=== PATIENT | female | born 1940 | race Caucasian/White ===

== ENCOUNTER 2016-12-16 00:29 | Inpatient (IN) | payer OTHER ==
[2016-12-16] MEDS ORDERED: NS 0.9% 1000 ML* 1,000 ML IV ONE (01:23)
[2016-12-16 02:02] LABS: Hematocrit 36 % (35-47); Hemoglobin 11.3 g/dl (12.0-16.0); Mean Corpuscular HGB Conc 32 g/dl (31-36); Mean Corpuscular Hemoglobin 30 pg (27-31); Mean Corpuscular Volume 94 fL (80-97); Mean Platelet Volume 8 um3 (7.4-10.4); Red Blood Count 3.79 10^6/ul (4.0-5.4); Red Cell Distribution Width 16 % (10.5-15); White Blood Count 12.3 10^3/ul (3.5-10.8)
[2016-12-16 02:09] LABS: Urine Bacteria Absent (Absent); Urine Bilirubin Negative (Negative); Urine Glucose Negative (Negative); Urine Nitrite Negative (Negative)
[2016-12-16 02:13] LABS: Troponin I 0.01 ng/mL (<0.04)
[2016-12-16 02:16] LABS: ALT 16 U/L (7-52); AST 15 U/L (13-39); Albumin 2.8 g/dL (3.2-5.2); Alkaline Phosphatase 52 U/L (34-104); Anion Gap 6 mmol/L (2-11); BUN/Creatinine Ratio 20.7 (8-20); Blood Urea Nitrogen 24 mg/dL (6-24); CO2 Carbon Dioxide 27 mmol/L (22-32); Calcium 8.7 mg/dL (8.6-10.3); Chloride 103 mmol/L (101-111); EGFR African American 58.4 (>60); EGFR Non-African American 45.4 (>60); Glucose 93 mg/dL (70-100); Lipase < 10 U/L (11.0-82.0); Potassium 3.1 mmol/L (3.5-5.0); Sodium 136 mmol/L (133-145); Total Protein 4.8 g/dL (6.4-8.9)
[2016-12-16] MEDS ORDERED: Iodixanol* (CONTRAST) 320 MG/ML 100 ML SDV IV ONE (02:51)
[2016-12-16] MEDS ORDERED: Piperac/Tazob 3.375 gm in NS* 3.375 GM/100 ML BAG IVPB ONE (03:05)
[2016-12-16] MEDS ORDERED: Ondansetron INJ* 2 MG/ML VIAL IV ONE (03:26)
[2016-12-16] MEDS ORDERED: Morphine INJ* 2 MG/ML 1 ML CARPUJECT IV ONE (03:26)
--- NOTE | 2016-12-16 03:30 | ED ---
Juan C Leiva Aidan, scribed for Basil Parrish on 12/16/16 at 0126 . Abdominal Pain/Female - HPI Summary HPI Summary: 75 y/o female presents to the ED via transfer from [facility] with a complaint of acute, constant, moderate (6/10) LLQ abdominal pain and acute, [id number] episodes of leg weakness. This morning, she was unable to get out of her bed as a result of her leg weakness and fell on two separate occasions with no reported LOC. At [place], she was diagnosed with diverticulitis. Hx of chronic back pain and neuropathy. - History of Current Complaint Chief Complaint: EDAbdPain Stated Complaint: XFER FROM [facility] Time Seen by Provider: 12/16/16 01:00 Hx Obtained From: Patient ?: No Onset/Duration: Sudden Onset, Lasting Hours, Still Present Timing: Constant - abdominal pain Severity Initially: Moderate Severity Currently: Moderate Pain Intensity: 6 Pain Scale Used: 0-10 Numeric Location: Discrete At: LLQ Radiates: No Character: Other: - not described Aggravating Factor(s): Other: - unknown Alleviating Factor(s): Other: - unknown Associated Signs and Symptoms: Positive: Other: - leg weakness Allergies/Adverse Reactions: Allergies Allergy/AdvReac Type Severity Reaction Status Date / Time Ibuprofen Allergy Anaphylatic Verified 12/16/16 00:51 Shock Home Medications: Home Medications Cyclosporine 0.05% OPHTH (NF) [Restasis 0.05% OPHTH] 1 drop BOTH EYES BID [History Confirmed 12/16/16] Furosemide TAB* [Lasix TAB*] 20 mg PO DAILY 12/16/16 [History Confirmed 12/16/16 ] Hydrocodone-Acetaminophen [Vicodin 5-300 mg] 1 tab PO Q6HR PRN 12/16/16 [ History Confirmed 12/16/16] Potassium Chlor TAB* [Klor Con ER TAB*] 20 meq PO BID 12/16/16 [History Confirmed 12/16/16] PMH/Surg Hx/FS Hx/Imm Hx Infectious Disease History: No Infectious Disease History: Denies: Traveled Outside the [place] in Last 30 Days - Social History Occupation: Retired Lives: With Family - Alcohol Use: Rare Hx Substance Use: No Substance Use Type: Reports: None Smoking Status (MU): Never Smoked Tobacco Review of Systems Constitutional: Negative Eyes: Negative ENT: Negative Cardiovascular: Negative Respiratory: Negative Positive: Abdominal Pain. Negative: Vomiting, Diarrhea, Nausea Genitourinary: Negative Musculoskeletal: Other - leg weakness Skin: Negative Neurological: Negative Psychological: Normal All Other Systems Reviewed And Are Negative: Yes Physical Exam Triage Information Reviewed: Yes Vital Signs On Initial Exam: Initial Vitals Temp Pulse Resp BP Pulse Ox 99.9 F 84 16 104/70 94 12/16/16 00:40 12/16/16 00:40 12/16/16 00:40 12/16/16 00:40 12/16/16 00:40 Vital Signs Reviewed: Yes Appearance: Positive: Well-Appearing, No Pain Distress Skin: Positive: Warm, Skin Color Reflects Adequate Perfusion, Dry Head/Face: Positive: Normal Head/Face Inspection Eyes: Positive: EOMI, SEGUNDO ENT: Positive: Normal ENT inspection Neck: Positive: Supple, Nontender Respiratory/Lung Sounds: Positive: Clear to Auscultation, Breath Sounds Present Cardiovascular: Positive: RRR, Pulses are Symmetrical in both Upper and Lower Extremities Abdomen Description: Positive: Soft. Negative: Nontender - LLQ tenderness Bowel Sounds: Positive: Present Musculoskeletal: Positive: Strength/ROM Intact Neurological: Positive: Sensory/Motor Intact, Alert, Oriented to Person Place, Time Psychiatric: Positive: Affect/Mood Appropriate AVPU Assessment: Alert Diagnostics - Vital Signs Vital Signs Temp Pulse Resp BP Pulse Ox 12/16/16 00:52 82 16 95 12/16/16 00:51 99/63 12/16/16 00:40 99.9 F 84 16 104/70 94 - Laboratory Result Diagrams: 12/16/16 01:40 12/16/16 01:40 Lab Statement: Any lab studies that have been ordered have been reviewed, and results considered in the medical decision making process. Abdominal Pain Fem Course/Dx - Course Course Of Treatment: This is a 75 y/o female who presents with LLQ abdominal pain and bilateral leg weakness. - Diagnoses Provider Diagnoses: Diverticulitis Discharge - Discharge Plan Condition: Stable Disposition: ADMITTED TO [facility] Patient Education Materials: Diverticulitis (ED) The documentation as recorded by the Juan C nichols Aidan accurately reflects the service I personally performed and the decisions made by Shivani roa Emmanuel.
[2016-12-16] MEDS ORDERED: PROCHLORPERAZINE INJ 5 MG/ML 2 ML VIAL IV PRN (06:21)
[2016-12-16] MEDS ORDERED: LORazepam INJ* 2 MG/ML 1 ML VIAL IV PRN ×2 (06:21→06:53)
[2016-12-16] MEDS ORDERED: Acetaminophen SUPP* 650 MG SUPP PR PRN (06:21)
[2016-12-16] MEDS ORDERED: Ondansetron INJ* 2 MG/ML VIAL IV PRN (06:21)
--- NOTE | 2016-12-16 06:54 | HP ---
H&P (Free Text) History and Physical: PCP: Kimberly Navarro MD Date/Time of Evaluation: 12/16/2016 0500 CC: abdominal pain HPI: Mrs Purvis is a 75YO female reporting decreased appetite and "queasiness" starting Saturday which she thought was a "stomach bug" as her had similar symptoms plus diarrhea. However, hers continued to worsen becoming more painful and associated with increased sweats, but no subjective F/C, emesis, or other issues. She presented to [place] ED where CT abd/pel revealed severe diverticulitis w/ microperforation & ? abscess formation and transfer arranged after [place] provided consulted with Carole Maxwell MD surgery. PMedHx HTN HLD peripheral neuropathy, BLE GERD anxiety OA gout Allergies Ibuprofen Allergy (Verified 12/16/16 00:51) Anaphylatic Shock Ambulatory Orders Allopurinol TAB* [Zyloprim TAB*] 100 mg PO BID 09/11/13 Atorvastatin Calcium 20 mg PO BEDTIME 09/11/13 Citalopram TAB* [Celexa TAB*] 10 mg PO DAILY 09/11/13 Gabapentin* [Neurontin*] 300 mg PO TID 09/11/13 Losartan Potassium & Hydrochlo [Hyzaar] 1 tab PO DAILY 09/11/13 Omeprazole CAP* [Prilosec CAP*] 20 mg PO DAILY 09/11/13 Cyclosporine 0.05% OPHTH (NF) [Restasis 0.05% OPHTH] 1 drop BOTH EYES BID Furosemide TAB* [Lasix TAB*] 20 mg PO DAILY 12/16/16 Hydrocodone-Acetaminophen [Vicodin 5-300 mg] 1 tab PO Q6HR PRN 12/16/16 Potassium Chlor TAB* [Klor Con ER TAB*] 20 meq PO BID 12/16/16 PSurgHx tonsillectomy L TKA SocHx: no tobacco, alcohol, or recreational drugs; lives with her ; Master's degree in education; full code status FamHx: reviewed, non-contributory to presentation; strongly positive for CAD ROS: as above, otherwise reviewed and all were negative Constitutional: NAD, normally developed, overweight white female vitals: Vital Signs Temp 37.7 C 12/16/16 00:40 Pulse 80 12/16/16 05:25 Resp 17 12/16/16 05:25 BP 102/60 12/16/16 05:25 Pulse Ox 95 12/16/16 05:25 Intake & Output 12/15/16 12/15/16 12/16/16 11:59 23:59 11:59 Intake Total 100 Balance 100 Weight 160 lb Intake: IV Fluids 100 HEENM: atraumatic; sclera/conjunctiva: non-icteric/clear; hearing: markedly decreased, B hearing aides; oropharynx: clear, mucosa moist Neck: soft tissue: non-tender; thyroid: normal Pulmonary: clear to auscultation bilaterally, good aeration, no accessory muscle use CV: RR/RR, normal S1S2, no carotid bruit, no jugular venous distention, 2+ B DP/ PT, no edema Abdominal: soft, non-distended, diffusely tender worst in LLQ with voluntary guarding but no rebound/rigidity, hypoactive bowel sounds, no hepatosplenomegaly or masses, no costovertebral angle tenderness Musculoskeletal: general: grossly intact; gait: stable Integumental: normal appearance and texture Psychiatric orientation: AA&O to PPS affect: calm mood: pleasant eye contact: good content: reliable responses: timely insight: good Testing: Lab Results 12/16/16 12/16/16 12/16/16 Range/Units 01:40 01:40 01:40 WBC 12.3 H (3.5-10.8) 10^3/ul RBC 3.79 L (4.0-5.4) 10^6/ul Hgb 11.3 L (12.0-16.0) g/dl Hct 36 (35-47) % MCV 94 (80-97) fL MCH 30 (27-31) pg MCHC 32 (31-36) g/dl RDW 16 H (10.5-15) % Plt Count 161 (150-450) 10^3/ul MPV 8 (7.4-10.4) um3 Neut % (Auto) 85.3 H (38-83) % Lymph % (Auto) 8.9 L (25-47) % [place] % (Auto) 4.4 (1-9) % Eos % (Auto) 1.0 (0-6) % Baso % (Auto) 0.4 (0-2) % Absolute Neuts (auto) 10.5 H (1.5-7.7) 10^3/ul Absolute Lymphs (auto) 1.1 (1.0-4.8) 10^3/ul Absolute Monos (auto) 0.5 (0-0.8) 10^3/ul Absolute Eos (auto) 0.1 (0-0.6) 10^3/ul Absolute Basos (auto) 0 (0-0.2) 10^3/ul Absolute Nucleated RBC 0.01 10^3/ul Nucleated RBC % 0.1 APTT 26.2 (26.0-36.3) seconds Sodium (133-145) mmol/L Potassium (3.5-5.0) mmol/L Chloride (101-111) mmol/L Carbon Dioxide (22-32) mmol/L Anion Gap (2-11) mmol/L BUN (6-24) mg/dL Creatinine (0.51-0.95) mg/dL Est GFR ( Amer) (>60) Est GFR (Non-Af Amer) (>60) BUN/Creatinine Ratio (8-20) Glucose (70-100) mg/dL Lactic Acid (0.5-2.0) mmol/L Calcium (8.6-10.3) mg/dL Total Bilirubin (0.2-1.0) mg/dL AST (13-39) U/L ALT (7-52) U/L Alkaline Phosphatase (34-104) U/L Troponin I (<0.04) ng/mL Total Protein (6.4-8.9) g/dL Albumin (3.2-5.2) g/dL Globulin (2-4) g/dL Albumin/Globulin Ratio (1-3) Prealbumin Lipase (11.0-82.0) U/L Urine Color Yellow Urine Appearance Clear Urine pH 5.0 (5-9) Ur Specific [place] 1.008 L (1.010-1.030) Urine Protein Negative (Negative) Urine Ketones Negative (Negative) Urine Blood 2+ H (Negative) Urine Nitrate Negative (Negative) Urine Bilirubin Negative (Negative) Urine Urobilinogen Negative (Negative) Ur Leukocyte Esterase 2+ H (Negative) Urine WBC (Auto) 3+(>20/hpf) H (Absent) Urine RBC (Auto) Trace(0-2/hpf) (Absent) Ur Squamous Epith Cells Present H (Absent) Urine Bacteria Absent (Absent) Urine Glucose Negative (Negative) 12/16/16 12/16/16 Range/Units 01:40 01:40 WBC (3.5-10.8) 10^3/ul RBC (4.0-5.4) 10^6/ul Hgb (12.0-16.0) g/dl Hct (35-47) % MCV (80-97) fL MCH (27-31) pg MCHC (31-36) g/dl RDW (10.5-15) % Plt Count (150-450) 10^3/ul MPV (7.4-10.4) um3 Neut % (Auto) (38-83) % Lymph % (Auto) (25-47) % [place] % (Auto) (1-9) % Eos % (Auto) (0-6) % Baso % (Auto) (0-2) % Absolute Neuts (auto) (1.5-7.7) 10^3/ul Absolute Lymphs (auto) (1.0-4.8) 10^3/ul Absolute Monos (auto) (0-0.8) 10^3/ul Absolute Eos (auto) (0-0.6) 10^3/ul Absolute Basos (auto) (0-0.2) 10^3/ul Absolute Nucleated RBC 10^3/ul Nucleated RBC % APTT (26.0-36.3) seconds Sodium 136 (133-145) mmol/L Potassium 3.1 L (3.5-5.0) mmol/L Chloride 103 (101-111) mmol/L Carbon Dioxide 27 (22-32) mmol/L Anion Gap 6 (2-11) mmol/L BUN 24 (6-24) mg/dL Creatinine 1.16 H (0.51-0.95) mg/dL Est GFR ( Amer) 58.4 (>60) Est GFR (Non-Af Amer) 45.4 (>60) BUN/Creatinine Ratio 20.7 H (8-20) Glucose 93 (70-100) mg/dL Lactic Acid 0.8 (0.5-2.0) mmol/L Calcium 8.7 (8.6-10.3) mg/dL Total Bilirubin 0.80 (0.2-1.0) mg/dL AST 15 (13-39) U/L ALT 16 (7-52) U/L Alkaline Phosphatase 52 (34-104) U/L Troponin I 0.01 (<0.04) ng/mL Total Protein 4.8 L (6.4-8.9) g/dL Albumin 2.8 L (3.2-5.2) g/dL Globulin 2.0 (2-4) g/dL Albumin/Globulin Ratio 1.4 (1-3) Prealbumin Pending Lipase < 10 L (11.0-82.0) U/L Urine Color Urine Appearance Urine pH (5-9) Ur Specific [place] (1.010-1.030) Urine Protein (Negative) Urine Ketones (Negative) Urine Blood (Negative) Urine Nitrate (Negative) Urine Bilirubin (Negative) Urine Urobilinogen (Negative) Ur Leukocyte Esterase (Negative) Urine WBC (Auto) (Absent) Urine RBC (Auto) (Absent) Ur Squamous Epith Cells (Absent) Urine Bacteria (Absent) Urine Glucose (Negative) CT abd/pel W ([facility]), personally reviewed: diverticulitis w/ microperforation & ? evolving abscess Impression: 75F presenting with diverticulitis w/ microperforation & ? evolving abscess DIAGNOSIS & PLAN Primary diverticulitis w/ microperforation & ? evolving abscess : IVFs : NPO : IV piperacillin/tazobactam : blood CX : Carole Maxwell MD surgery consulted by [facility], will evaluate in AM : supplemental oxygen : pain control : supportive care Secondary HTN : hold losartan for now, monitor HLD : hold atorvastatin for now peripheral neuropathy, BLE : continue gabapentin w/ sips H2O GERD : IV pantoprazole anxiety : PRN lorazepam IV : hold citalopram for now gout : continue allopurinol w/ sips H2O Admission Rational: inpatient for management of severe diverticulitis possibly requiring surgery in patient at high risk of decompensation DVTp: SCDs & heparin SQ Code Status: full HCP:
[2016-12-16 07:07] LABS: Prealbumin 18 mg/dL (18-38)
[2016-12-16] MEDS: HYDROmorphone INJ* 1 MG/ML CARPUJECT SYRINGE IV PRN ×3 (07:25→18:11)
[2016-12-16] MEDS: KCL 20 MEQ/100 ML IVPREMIX* 20 MEQ/100 ML BAG IV SCH ×2 (08:43→11:44)
[2016-12-16] MEDS: Piperac/Tazob 3.375 gm in NS* 3.375 GM/100 ML BAG IVPB SCH ×3 (08:43→21:27)
[2016-12-16] MEDS: Cyclosporine 0.05% OPHTH (NF) 0.4 ML VIAL BOTH EYES SCH ×2 (09:11→21:32)
[2016-12-16] MEDS: Gabapentin CAP(*) 300 MG PO SCH ×3 (09:23→21:31)
[2016-12-16] MEDS: Allopurinol TAB* 100 MG PO SCH ×2 (09:24→21:31)
[2016-12-16] MEDS: Pantoprazole IV* 40 MG IV SCH (09:24)
--- NOTE | 2016-12-16 12:11 | PN ---
Subjective Date of Service: 12/16/16 Interval History: Patient seen and examined at bedside. She is pleasant and talkative. She states that she just had pain medicine and reports that the pain is most noticeable on the left and spreads across her low abdomen. She feels "stir crazy" and is waiting for her to come so she can have some distraction from her pain. Patient assisted in obtaining reading materials. She denies CP, SOB, n/v. She states that she "misses food." She reports left leg pain but then reports that she has multiple bone issues and this is not new pain. Family History: Unchanged from Admission Social History: Unchanged from Admission Past Medical History: Unchanged from Admission Objective Active Medications: Acetaminophen (Tylenol Supp*) 650 mg ID Q6H PRN PRN Reason: FEVER/PAIN Allopurinol (Zyloprim Tab*) 100 mg PO BID [facility] Last Admin: 12/16/16 09:24 Dose: 100 mg Cyclosporine (Restasis 0.05% Ophth) 1 drop BOTH EYES BID [facility] PRN Reason: Protocol Last Admin: 12/16/16 09:11 Dose: Not Given Gabapentin (Neurontin Cap(*)) 300 mg PO TID [facility] Last Admin: 12/16/16 09:23 Dose: 300 mg Heparin Sodium (Porcine) (Heparin Vial(*)) 5,000 units SUBCUT Q8HR [facility] Hydromorphone HCl (Dilaudid Iv*) 0.5 mg IV Q2H PRN PRN Reason: PAIN Last Admin: 12/16/16 11:23 Dose: 0.5 mg Lactated Ringer's (Lactated Ringers 1000 Ml Bag*) 1,000 mls @ 125 mls/hr IV PER RATE [facility] Last Admin: 12/16/16 07:15 Dose: 125 mls/hr Piperacillin Sod/Tazobactam Sod (Zosyn 3.375 Gm In Ns Premix*) 3.375 gm in 100 mls @ 200 mls/hr IVPB Q6H [facility] Last Admin: 12/16/16 08:43 Dose: 200 mls/hr Lorazepam (Ativan Inj*) 1 mg IV BEDTIME PRN PRN Reason: SLEEP Lorazepam (Ativan Inj*) 0.5 mg IV Q8H PRN PRN Reason: ANXIETY Ondansetron HCl (Zofran Inj*) 4 mg IV Q6H PRN PRN Reason: NAUSEA Pantoprazole Sodium (Protonix Iv*) 40 mg IV DAILY [facility] Last Admin: 12/16/16 09:24 Dose: 40 mg Prochlorperazine Edisylate (Compazine Inj*) 10 mg IV Q6H PRN PRN Reason: NAUSEA Vital Signs 12/16/16 12/16/16 12/16/16 06:52 07:15 07:25 Temperature 98.1 F 98.1 F Pulse Rate 76 73 Respiratory 18 18 18 Rate Blood Pressure 102/59 121/66 (mmHg) O2 Sat by Pulse 94 Oximetry 12/16/16 12/16/16 12/16/16 07:57 08:00 09:23 Temperature Pulse Rate Respiratory 18 18 18 Rate Blood Pressure (mmHg) O2 Sat by Pulse Oximetry 12/16/16 11:23 Temperature Pulse Rate Respiratory 18 Rate Blood Pressure (mmHg) O2 Sat by Pulse Oximetry Oxygen Devices in Use Now: None Appearance: Female patient, lying in bed, in NAD Eyes: PERRLA Ears/Nose/Mouth/Throat: Clear Oropharnyx, Mucous Membranes Moist Neck: NL Appearance and Movements; NL JVP Respiratory: Symmetrical Chest Expansion and Respiratory Effort, Clear to Auscultation Cardiovascular: NL Sounds; No Murmurs; No JVD, RRR Abdominal: - - BS present, abdomen protuberant, tender in LLQ and across mid/ lower abdomen Extremities: No Edema Skin: No Rash or Ulcers Neurological: Alert and Oriented x 3 Lines/Tubes/Other Access: Clean, Dry and Intact Peripheral IV Result Diagrams: 12/16/16 01:40 12/16/16 01:40 Assess/Plan/Problems-Billing Assessment: Ms. Purvis is a 75 yo female with a PMH of HTN, HLD, BLE peripheral neuropathy , GERD, anxiety, OA, and gout who presented to [place] ED on 12/15/16 with abdominal pain secondary to severe diverticulitis with microperforation and question of abscess formation; the patient was transferred to [facility] for admission and surgical consult on 12/16/16. - Patient Problems (1) Diverticulitis of intestine with perforation and abscess Code(s): K57.80 - DVTRCLI OF INTEST, PART UNSP, W PERF AND ABSCESS W/O BLEED Comment: With microperforation and question of evolving abscess Surgery consult pending Continue IVF, Zosyn, pain management NPO Blood cultures pending (drawn at [place]) (2) HTN (hypertension) Code(s): I10 - ESSENTIAL (PRIMARY) HYPERTENSION Comment: Normotensive. Continue to hold losartan/HCTZ and furosemide. (3) HLD (hyperlipidemia) Code(s): E78.5 - HYPERLIPIDEMIA, UNSPECIFIED Comment: Continue statin when able to take PO. (4) Peripheral neuropathy Code(s): G62.9 - POLYNEUROPATHY, UNSPECIFIED Comment: Continue gabapentin. (5) GERD (gastroesophageal reflux disease) Current Visit: Yes Code(s): K21.9 - GASTRO-ESOPHAGEAL REFLUX DISEASE WITHOUT ESOPHAGITIS Comment: Continue IV pantoprazole. Resume omeprazole when taking PO. (6) Anxiety Code(s): F41.9 - ANXIETY DISORDER, UNSPECIFIED Comment: Continue PRN lorazepam. Resume citalopram when appropriate to take PO. (7) Gout Code(s): M10.9 - GOUT, UNSPECIFIED Comment: Continue allopurinol. (8) DVT prophylaxis Comment: SQ heparin and SCDs Status and Disposition: Inpatient admission. Anticipate >2 days LOS.
[2016-12-16] MEDS ORDERED: Artificial Tears* 15 ML BTL BOTH EYES PRN (12:55)
--- NOTE | 2016-12-16 15:31 | RAD ---
INDICATION: Trauma left lower extremity pain. TECHNIQUE: An AP view of the pelvis was obtained. FINDINGS: There is residual contrast in the colon from a prior CT of the abdomen and pelvis from one day earlier. This limits the study. The bones are normal alignment. No fracture is seen. Incidental note is made of mild bilateral osteoarthritic change in the hips. IMPRESSION: LIMITED STUDY, NO EVIDENCE FOR FRACTURE.
--- NOTE | 2016-12-16 15:33 | RAD ---
INDICATION: Trauma, left lower extremity pain. TECHNIQUE: 2 views of the left femur were obtained. FINDINGS: The bones are normal alignment. No fracture is seen. The patient is status post total left knee replacement surgery. IMPRESSION: NO EVIDENCE FOR FRACTURE.
--- NOTE | 2016-12-16 15:34 | RAD ---
INDICATION: Left lower leg injury. TECHNIQUE: 2 views of the left lower leg were obtained. FINDINGS: The bones are in normal alignment. The patient is status post total left knee replacement surgery. The bones and prostheses are in normal alignment. There is an old healed fracture of the proximal metaphysis of the fibula. No acute fracture is seen. IMPRESSION: NO EVIDENCE FOR ACUTE FRACTURE.
[2016-12-16 18:42] LABS: C Reactive Protein 297.33 mg/L (< 5.00)
--- NOTE | 2016-12-16 19:26 | CONS ---
CONSULTATION REPORT: DATE OF CONSULT: 12/16/16 HISTORY: The patient is a 75-year-old female, who got transferred over from [place] [facility] with signs and symptoms consistent with focally perforated sigmoid diverticulitis. She has been admitted by the medical service and treated with antibiotics and surgical consultation has been requested. By history, she has had known diverticulosis, has had previous endoscopy with Dr. Garner, but has never had an attack of diverticulitis that she is aware of. She started feeling off with some pressure and pain in her stomach and some pressure with urination about 4 or 5 days ago. Her had had a GI bug and she thought she was coming down with the same GI bug, but then yesterday things got worse in terms of intensity of the pain. She has not had a bowel movement in over a day. She has not had any blood with the bowel movement. She has noticed pressure in the bladder when it gets full and has not had a urinary infection. She has not had abdominal surgery in this region at all. PHYSICAL EXAM: She appears fit and energetic. Skin is warm and well-perfused. She does not appear acutely ill. She remains afebrile with good vital signs. Abdomen is obese and soft and tender from the left lower quadrant through the suprapubic region to the right of the midline, most focally in the left suprapubic region. There is maybe a trace of rebound tenderness. No guarding. The upper abdomen is completely benign. There are no palpable masses or hernias. DIAGNOSTIC STUDIES/LAB DATA: Laboratory studies show white blood count elevated at 12,000 with left shift. Her electrolytes are unremarkable. I reviewed her CT scan from [facility], which shows an extraluminal collection with air and a little bit of fluid consistent with a perforated diverticulitis. There are inflammatory changes in that region as well. At this point, it is not clear whether this is an abscess but it certainly may become an abscess. There is no evidence of more widespread peritonitis. IMPRESSION: A 75-year-old female with evidence of sigmoid diverticulitis with focally contained perforation, now starting to feel a little bit better on intravenous Zosyn. I have discussed situation with her and with her and I recommend continued IV antibiotics. At present, she does not need any kind of emergent surgery. She understands that if her recovery stalls or if at any time it takes a turn for the worse, we could conceivably be needing to go to operating room, at which point, we would probably be planning a temporary colostomy. They understand the rationale behind this and all their questions have been answered, so we will proceed with continued antibiotics and we will monitor her closely. CC: Dr. Sarbjit Maxwell; Dr. Kaila Navarro; [facility] * [id number]/[facility] #: [id number] [facility]
[2016-12-17] MEDS: Piperac/Tazob 3.375 gm in NS* 3.375 GM/100 ML BAG IVPB SCH ×4 (03:39→21:02)
[2016-12-17] MEDS: Heparin VIAL(*) 5000 UNITS/ML VIAL (FIVE THOUSAND) SUBCUT SCH ×3 (06:09→21:42)
[2016-12-17 07:27] LABS: Hematocrit 34 % (35-47); Hemoglobin 11.1 g/dl (12.0-16.0); Mean Corpuscular HGB Conc 33 g/dl (31-36); Mean Corpuscular Hemoglobin 31 pg (27-31); Mean Corpuscular Volume 93 fL (80-97); Mean Platelet Volume 8 um3 (7.4-10.4); Red Cell Distribution Width 16 % (10.5-15); White Blood Count 8.4 10^3/ul (3.5-10.8)
[2016-12-17 07:39] LABS: BUN/Creatinine Ratio 18.5 (8-20); C Reactive Protein 233.83 mg/L (< 5.00); Calcium 9.6 mg/dL (8.6-10.3); EGFR African American 88.4 (>60); EGFR Non-African American 68.7 (>60); Potassium 3.8 mmol/L (3.5-5.0)
[2016-12-17] MEDS: Gabapentin CAP(*) 300 MG PO SCH ×3 (07:46→19:47)
[2016-12-17] MEDS: Allopurinol TAB* 100 MG PO SCH ×2 (07:46→19:49)
[2016-12-17] MEDS: Pantoprazole IV* 40 MG IV SCH (07:47)
[2016-12-17] MEDS: Cyclosporine 0.05% OPHTH (NF) 0.4 ML VIAL BOTH EYES SCH (07:48)
--- NOTE | 2016-12-17 08:22 | PN ---
Subjective Date of Service: 12/17/16 Interval History: Patient seen and examined at bedside. She reports that her abdomen feels better today but continues to report radiating left leg pain; this has been ongoing for a few weeks due to a misstep and injury. She reports chronic issues with the leg, as well as neuropathy. She denies fever/chills, CP, SOB, n/v. Patient encouraged to walk around and change positions, which she agrees with. Family History: Unchanged from Admission Social History: Unchanged from Admission Past Medical History: Unchanged from Admission Objective Active Medications: Acetaminophen (Tylenol Supp*) 650 mg AK Q6H PRN PRN Reason: FEVER/PAIN Allopurinol (Zyloprim Tab*) 100 mg PO BID [facility] Last Admin: 12/17/16 07:46 Dose: 100 mg Cyclosporine (Restasis 0.05% Ophth) 1 drop BOTH EYES BID [facility] PRN Reason: Protocol Last Admin: 12/17/16 07:48 Dose: Not Given Gabapentin (Neurontin Cap(*)) 300 mg PO TID [facility] Last Admin: 12/17/16 07:46 Dose: 300 mg Heparin Sodium (Porcine) (Heparin Vial(*)) 5,000 units SUBCUT Q8HR [facility] Last Admin: 12/17/16 06:09 Dose: 5,000 units Hydromorphone HCl (Dilaudid Iv*) 1 mg IV Q3H PRN PRN Reason: PAIN Last Admin: 12/16/16 18:11 Dose: 1 mg Piperacillin Sod/Tazobactam Sod (Zosyn 3.375 Gm In Ns Premix*) 3.375 gm in 100 mls @ 200 mls/hr IVPB Q6H [facility] Last Admin: 12/17/16 07:48 Dose: 200 mls/hr Lactated Ringer's (Lactated Ringers 1000 Ml Bag*) 1,000 mls @ 60 mls/hr IV PER RATE [facility] Lorazepam (Ativan Inj*) 1 mg IV BEDTIME PRN PRN Reason: SLEEP Lorazepam (Ativan Inj*) 0.5 mg IV Q8H PRN PRN Reason: ANXIETY Ondansetron HCl (Zofran Inj*) 4 mg IV Q6H PRN PRN Reason: NAUSEA Pantoprazole Sodium (Protonix Iv*) 40 mg IV DAILY [facility] Last Admin: 12/17/16 07:47 Dose: 40 mg Polyvinyl Alcohol (Polyvinyl Alcohol 1.4% Opth*) 1 drop BOTH EYES Q2H PRN PRN Reason: DRY EYE Last Admin: 12/16/16 16:14 Dose: 1 drop Prochlorperazine Edisylate (Compazine Inj*) 10 mg IV Q6H PRN PRN Reason: NAUSEA Vital Signs 12/16/16 12/16/16 12/16/16 09:23 11:23 12:03 Temperature 98.3 F Pulse Rate 66 Respiratory 18 18 16 Rate Blood Pressure 115/65 (mmHg) O2 Sat by Pulse 96 Oximetry 12/16/16 12/16/16 12/16/16 12:23 15:16 15:30 Temperature 98.6 F Pulse Rate 66 Respiratory 18 18 16 Rate Blood Pressure 115/64 (mmHg) O2 Sat by Pulse 98 Oximetry 12/16/16 12/16/16 12/16/16 17:15 18:11 19:11 Temperature Pulse Rate Respiratory 18 18 18 Rate Blood Pressure (mmHg) O2 Sat by Pulse Oximetry 12/16/16 12/16/16 12/16/16 19:29 19:50 21:31 Temperature 98.0 F Pulse Rate 83 Respiratory 18 18 20 Rate Blood Pressure 129/82 (mmHg) O2 Sat by Pulse 98 Oximetry 12/16/16 12/17/16 12/17/16 23:31 00:16 03:24 Temperature 98.3 F 98.7 F Pulse Rate 76 60 Respiratory 16 16 16 Rate Blood Pressure 135/78 135/78 (mmHg) O2 Sat by Pulse 93 96 Oximetry 12/17/16 12/17/16 07:27 07:46 Temperature 97.9 F Pulse Rate 59 Respiratory 16 16 Rate Blood Pressure 148/78 (mmHg) O2 Sat by Pulse 93 Oximetry Oxygen Devices in Use Now: None Appearance: Female patient, lying in bed, in NAD Eyes: PERRLA Ears/Nose/Mouth/Throat: Clear Oropharnyx, Mucous Membranes Moist Neck: NL Appearance and Movements; NL JVP Respiratory: Symmetrical Chest Expansion and Respiratory Effort, Clear to Auscultation Cardiovascular: NL Sounds; No Murmurs; No JVD, RRR Abdominal: - - abdomen soft, tender to LLQ and tender across lower abdomen, BS present Extremities: No Edema Skin: No Rash or Ulcers Neurological: Alert and Oriented x 3 Lines/Tubes/Other Access: Clean, Dry and Intact Peripheral IV Result Diagrams: 12/17/16 06:41 12/17/16 06:41 Assess/Plan/Problems-Billing Assessment: Ms. Purvis is a 75 yo female with a PMH of HTN, HLD, BLE peripheral neuropathy , GERD, anxiety, OA, and gout who presented to [place] ED on 12/15/16 with abdominal pain secondary to severe diverticulitis with microperforation and question of abscess formation; the patient was transferred to [facility] ED for admission and surgical consult on 12/16/16. - Patient Problems (1) Diverticulitis of intestine with perforation and abscess Code(s): K57.80 - DVTRCLI OF INTEST, PART UNSP, W PERF AND ABSCESS W/O BLEED Comment: Patient reports improvement in symptoms this AM Afebrile, WBC/CRP show improvement today With microperforation and question of evolving abscess Appreciate surgery input Continue IVF, Zosyn, pain management Clear liquids Blood cultures pending (drawn at [place]) (2) HTN (hypertension) Code(s): I10 - ESSENTIAL (PRIMARY) HYPERTENSION Comment: Mostly normotensive but BP starting to trend up. Resume losartan Continue to hold HCTZ and furosemide. (3) HLD (hyperlipidemia) Code(s): E78.5 - HYPERLIPIDEMIA, UNSPECIFIED Comment: Continue statin. (4) Peripheral neuropathy Code(s): G62.9 - POLYNEUROPATHY, UNSPECIFIED Comment: Continue gabapentin. (5) GERD (gastroesophageal reflux disease) Current Visit: Yes Code(s): K21.9 - GASTRO-ESOPHAGEAL REFLUX DISEASE WITHOUT ESOPHAGITIS Comment: Continue PPI. (6) Anxiety Code(s): F41.9 - ANXIETY DISORDER, UNSPECIFIED Comment: Continue citalopram. (7) Gout Code(s): M10.9 - GOUT, UNSPECIFIED Comment: Continue allopurinol. (8) DVT prophylaxis Comment: SQ heparin and SCDs Status and Disposition: Inpatient admission. Anticipate >2 days LOS.
[2016-12-17] MEDS ORDERED: Omeprazole CAP* 20 MG PO SCH (09:00)
[2016-12-17] MEDS: HYDROmorphone INJ* 1 MG/ML CARPUJECT SYRINGE IV PRN ×2 (11:39→21:47)
[2016-12-17] MEDS: Losartan TAB* 25 MG PO SCH (11:40)
[2016-12-17] MEDS: Citalopram TAB* 10 MG PO SCH (11:41)
[2016-12-17] MEDS: Potassium Chlor TAB* 20 MEQ TAB.ER PO SCH ×2 (11:41→19:49)
[2016-12-17] MEDS: Atorvastatin* 20 MG TAB PO SCH (19:47)
[2016-12-17] MEDS: CYCLOSPORINE 0.05% BOTH EYES SCH (19:50)
[2016-12-18] MEDS: Piperac/Tazob 3.375 gm in NS* 3.375 GM/100 ML BAG IVPB SCH ×4 (03:18→21:24)
[2016-12-18] MEDS: Heparin VIAL(*) 5000 UNITS/ML VIAL (FIVE THOUSAND) SUBCUT SCH ×3 (05:36→21:30)
[2016-12-18 07:12] LABS: Hematocrit 33 % (35-47); Hemoglobin 10.7 g/dl (12.0-16.0); Mean Corpuscular HGB Conc 33 g/dl (31-36); Mean Corpuscular Hemoglobin 31 pg (27-31); Mean Corpuscular Volume 94 fL (80-97); Mean Platelet Volume 8 um3 (7.4-10.4); Red Cell Distribution Width 16 % (10.5-15)
[2016-12-18 07:14] LABS: Add Diff/Slide Review? Slide Review Added; Comments Flag Yes
--- NOTE | 2016-12-18 08:50 | PN ---
Subjective Date of Service: 12/18/16 Interval History: Patient seen and examined at bedside. She reports having 2-3 BM overnight and this AM and that they are becoming more firm. She feels as if she has more gas this morning and reports some "upset stomach." She denies CP, SOB. Abd pain is decreasing in severity. Patient advised to ambulate in order to facilitate flatus. She agrees with this. She reports chronic left leg pain but noted that it was better when she moved around and did not bother her as much overnight. Family History: Unchanged from Admission Social History: Unchanged from Admission Past Medical History: Unchanged from Admission Objective Active Medications: Acetaminophen (Tylenol Supp*) 650 mg DC Q6H PRN PRN Reason: FEVER/PAIN Allopurinol (Zyloprim Tab*) 100 mg PO BID [facility] Last Admin: 12/17/16 19:49 Dose: 100 mg Atorvastatin Calcium (Lipitor*) 20 mg PO BEDTIME [facility] Last Admin: 12/17/16 19:47 Dose: 20 mg Citalopram Hydrobromide (Celexa Tab*) 10 mg PO DAILY [facility] Last Admin: 12/17/16 11:41 Dose: 10 mg Cyclosporine (Restasis 0.05% Oph) 1 drop BOTH EYES BID [facility] PRN Reason: Protocol Last Admin: 12/17/16 19:50 Dose: 1 drop Gabapentin (Neurontin Cap(*)) 300 mg PO TID [facility] Last Admin: 12/17/16 19:47 Dose: 300 mg Heparin Sodium (Porcine) (Heparin Vial(*)) 5,000 units SUBCUT Q8HR [facility] Last Admin: 12/18/16 05:36 Dose: 5,000 units Hydromorphone HCl (Dilaudid Iv*) 1 mg IV Q3H PRN PRN Reason: PAIN Last Admin: 12/17/16 21:47 Dose: 1 mg Piperacillin Sod/Tazobactam Sod (Zosyn 3.375 Gm In Ns Premix*) 3.375 gm in 100 mls @ 200 mls/hr IVPB Q6H [facility] Last Admin: 12/18/16 03:18 Dose: 200 mls/hr Lactated Ringer's (Lactated Ringers 1000 Ml Bag*) 1,000 mls @ 0 mls/hr IV PER RATE [facility] PRN Reason: KVO Lorazepam (Ativan Inj*) 1 mg IV BEDTIME PRN PRN Reason: SLEEP Lorazepam (Ativan Inj*) 0.5 mg IV Q8H PRN PRN Reason: ANXIETY Losartan Potassium (Cozaar Tab*) 100 mg PO DAILY [facility] Last Admin: 12/17/16 11:40 Dose: 100 mg Omeprazole (Prilosec Cap*) 20 mg PO 0900 [facility] Ondansetron HCl (Zofran Inj*) 4 mg IV Q6H PRN PRN Reason: NAUSEA Polyvinyl Alcohol (Polyvinyl Alcohol 1.4% Opth*) 1 drop BOTH EYES Q2H PRN PRN Reason: DRY EYE Last Admin: 12/16/16 16:14 Dose: 1 drop Potassium Chloride (Klor Con Er Tab*) 20 meq PO BID [facility] Last Admin: 12/17/16 19:49 Dose: 20 meq Prochlorperazine Edisylate (Compazine Inj*) 10 mg IV Q6H PRN PRN Reason: NAUSEA Vital Signs 12/17/16 12/17/16 12/17/16 11:32 11:39 12:39 Temperature 97.8 F Pulse Rate 59 Respiratory 17 16 16 Rate Blood Pressure 165/80 (mmHg) O2 Sat by Pulse 98 Oximetry 12/17/16 12/17/16 12/17/16 13:38 15:12 15:38 Temperature 97.8 F Pulse Rate 57 Respiratory 16 16 16 Rate Blood Pressure 141/58 (mmHg) O2 Sat by Pulse 99 Oximetry 12/17/16 12/17/16 12/17/16 19:13 19:37 19:47 Temperature 98.1 F Pulse Rate 65 Respiratory 16 16 16 Rate Blood Pressure 127/72 (mmHg) O2 Sat by Pulse 94 Oximetry 12/17/16 12/17/16 12/17/16 21:47 22:47 23:54 Temperature 97.5 F Pulse Rate 57 Respiratory 16 16 16 Rate Blood Pressure 116/67 (mmHg) O2 Sat by Pulse 97 Oximetry 12/18/16 12/18/16 03:21 07:50 Temperature 97.5 F 97.8 F Pulse Rate 57 55 Respiratory 16 16 Rate Blood Pressure 133/77 153/86 (mmHg) O2 Sat by Pulse 97 99 Oximetry Oxygen Devices in Use Now: None Appearance: Female patient, lying in bed, in NAD Eyes: PERRLA Ears/Nose/Mouth/Throat: Mucous Membranes Moist Respiratory: Symmetrical Chest Expansion and Respiratory Effort, Clear to Auscultation Cardiovascular: NL Sounds; No Murmurs; No JVD, RRR Abdominal: - - BS present, abd soft, tender in LLQ and across suprapubic region Extremities: No Clubbing, Cyanosis Skin: No Rash or Ulcers Neurological: Alert and Oriented x 3 Lines/Tubes/Other Access: Clean, Dry and Intact Peripheral IV Nutrition: Taking PO's Result Diagrams: 12/18/16 06:32 12/17/16 06:41 Assess/Plan/Problems-Billing Assessment: Ms. Purvis is a 75 yo female with a PMH of HTN, HLD, BLE peripheral neuropathy , GERD, anxiety, OA, and gout who presented to [place] ED on 12/15/16 with abdominal pain secondary to severe diverticulitis with microperforation and question of abscess formation; the patient was transferred to [facility] for admission and surgical consult on 12/16/16. - Patient Problems (1) Diverticulitis of intestine with perforation and abscess Code(s): K57.80 - DVTRCLI OF INTEST, PART UNSP, W PERF AND ABSCESS W/O BLEED Comment: Patient reports gas and nausea this morning but feels she is improving Afebrile, WBC improved With microperforation and question of evolving abscess Appreciate surgery input Continue IVF, Zosyn, pain management Clear liquids Blood cultures pending (drawn at [place]) (2) HTN (hypertension) Code(s): I10 - ESSENTIAL (PRIMARY) HYPERTENSION Comment: Mostly normotensive. Continue losartan. Continue to hold HCTZ and furosemide. (3) HLD (hyperlipidemia) Code(s): E78.5 - HYPERLIPIDEMIA, UNSPECIFIED Comment: Continue statin. (4) Peripheral neuropathy Code(s): G62.9 - POLYNEUROPATHY, UNSPECIFIED Comment: Continue gabapentin. (5) GERD (gastroesophageal reflux disease) Current Visit: Yes Code(s): K21.9 - GASTRO-ESOPHAGEAL REFLUX DISEASE WITHOUT ESOPHAGITIS Comment: Continue PPI. (6) Anxiety Code(s): F41.9 - ANXIETY DISORDER, UNSPECIFIED Comment: Continue citalopram. (7) Gout Code(s): M10.9 - GOUT, UNSPECIFIED Comment: Continue allopurinol. (8) Chronic pain of left lower extremity Code(s): M79.605 - PAIN IN LEFT LEG; G89.29 - OTHER CHRONIC PAIN Comment: Encourage ambulation, PT consult. Continue prn analgesia. XR negative for acute fracture following misstep/fall several days ago Continue outpatient follow-up with pain clinic. (9) DVT prophylaxis Comment: SQ heparin and SCDs Status and Disposition: Inpatient admission. Anticipate >2 days LOS.
[2016-12-18] MEDS: Citalopram TAB* 10 MG PO SCH (09:44)
[2016-12-18] MEDS: Allopurinol TAB* 100 MG PO SCH ×2 (09:44→19:48)
[2016-12-18] MEDS: Gabapentin CAP(*) 300 MG PO SCH ×3 (09:44→19:48)
[2016-12-18] MEDS: Potassium Chlor TAB* 20 MEQ TAB.ER PO SCH ×2 (09:48→19:48)
[2016-12-18] MEDS: Losartan TAB* 25 MG PO SCH (09:48)
[2016-12-18] MEDS: Omeprazole CAP* 20 MG PO SCH (09:49)
[2016-12-18] MEDS: CYCLOSPORINE 0.05% BOTH EYES SCH ×2 (09:50→19:49)
[2016-12-18] MEDS: Atorvastatin* 20 MG TAB PO SCH (19:48)
[2016-12-19] MEDS: Piperac/Tazob 3.375 gm in NS* 3.375 GM/100 ML BAG IVPB SCH ×2 (02:56→09:05)
[2016-12-19] MEDS ORDERED: Acetaminophen TAB* 325 MG PO PRN (03:43)
[2016-12-19] MEDS ORDERED: Acetaminophen TAB* 325 MG ONE (03:50)
[2016-12-19] MEDS: Heparin VIAL(*) 5000 UNITS/ML VIAL (FIVE THOUSAND) SUBCUT SCH ×2 (05:35→14:31)
[2016-12-19] MEDS: CYCLOSPORINE 0.05% BOTH EYES SCH (08:34)
[2016-12-19] MEDS: Omeprazole CAP* 20 MG PO SCH (08:35)
[2016-12-19] MEDS: Gabapentin CAP(*) 300 MG PO SCH ×2 (08:35→14:31)
[2016-12-19] MEDS: Potassium Chlor TAB* 20 MEQ TAB.ER PO SCH (08:36)
[2016-12-19] MEDS: Citalopram TAB* 10 MG PO SCH (08:36)
[2016-12-19] MEDS: Losartan TAB* 25 MG PO SCH (08:36)
[2016-12-19] MEDS: HYDROcodone/ACETAMIN 5-325 MG* 1 TAB PO PRN ×2 (08:36→14:30)
[2016-12-19] MEDS: Allopurinol TAB* 100 MG PO SCH (08:36)
--- NOTE | 2016-12-19 08:36 | PN ---
Progress Note - Progress Note SOAP: Subjective: [] awake,alert,oob in chair,having loose stools,passing flatus,no nausea,is hungry,c/o headache,mild LLQ discomfort,hoping to go home Objective:lungs:clear bilat;heart:RRR;abd:+bs,bloated but soft,mild tenderness LLQ,no guarding or rebound;ext:nontender [] Assessment:improving on antibiotics [] Plan:advance to full liquids,dietary consult for low residue diet,possible disch on oral abx per hospitalist []
[2016-12-19 13:04] VITALS: BP 144/86
--- NOTE | 2016-12-19 21:54 | DS ---
DISCHARGE SUMMARY: DATE OF ADMISSION: 12/16/16 DATE OF DISCHARGE: 12/19/16 PRIMARY CARE PROVIDER: Dr. Navarro. DISCHARGE DIAGNOSES: 1. Severe sigmoid diverticulitis with possibility of developing abscess and microperforation. 2. A 1.8 cm left adrenal incidentaloma, to be further evaluated as outpatient. SECONDARY DIAGNOSES: 1. Hypertension. 2. Dyslipidemia. 3. Peripheral neuropathy. 4. Gastroesophageal reflux disease. 5. Anxiety. 6. Gout. MEDICATIONS AT DISCHARGE: Include: 1. Acetaminophen 650 mg every 6 hours p.r.n. 2. Allopurinol 100 mg b.i.d. 3. Augmentin 875 mg p.o. b.i.d. for 2 weeks total. 4. Atorvastatin 20 mg at bedtime. 5. Celexa 20 mg daily. 6. Cyclosporine 0.05% eye drops one drop to both eyes b.i.d. 7. Lasix 20 mg daily. 8. Neurontin 300 mg 3 times a day. 9. Hydrocodone/acetaminophen 5/300 one tablet up to 3 times a day p.r.n. 10. Hyzaar 1 tablet daily. 11. Metronidazole 500 mg p.o. 3 times a day for 2 weeks total. 12. Omeprazole 20 mg daily. 13. Potassium chloride 20 mEq b.i.d. LABORATORY DATA AND STUDIES PERFORMED DURING THE STAY: Included: On 12/17/16, sodium of 136, potassium 3.8, chloride 104, carbon dioxide 24. BUN 15, creatinine 0.81. On 12/18/16, white blood cell count of 7.2, hemoglobin 10.7, hematocrit of 33, and platelets of 205. CAT scan of the patient's abdomen that was reported at [facility] from where the patient was originally transferred from [facility], impression: "Severe mid sigmoid diverticulitis with large inflamed diverticulum and a small amount of adjacent free intraperitoneal air. Developing abscess would be difficult to exclude. Small right lower lobe infiltrate. Cholelithiasis, hiatal hernia, renal cyst, left adrenal adenoma and degenerative changes of the spine." CONSULTATIONS DURING THE HOSPITAL STAY: Included Dr. Maxwell from Surgery. DIET AT DISCHARGE: Full liquids for day and then continue with low residue diet. DISCHARGE FOLLOWUP: 1. Includes an appointment with Dr. Navarro on 12/25/16 at 11:15 a.m. for posthospital followup. 2. Dr. Maxwell, the patient is instructed to call and make an appointment in 7 to 10 days for followup. HOSPITALIZATION COURSE: Malka Purvis is a 75-year-old female who presented to our facility from [facility] with severe diverticulitis, possibility of organizing abscess and microperforation. The patient was seen by Dr. Maxwell in consultation. A nonoperative management was advised. The patient did very well with treatment with Zosyn. She had been afebrile ever since her presentation to our ER. Her pain has lessened and is well controlled with her chronic pain medications that she usually takes. Today she was advanced to a full liquid diet. She is advised to continue full liquid diet for a day until proceeding to low residue diet. PHYSICAL EXAMINATION AT THE TIME OF DISCHARGE: Vitals: Blood pressure of 144/ 86, heart rate of 57 and regular, respiratory rate of 16, oxygen saturation 99% on room air, temperature of 98.1. General: This is a very pleasant 75-year- old female who is not in any acute distress. Alert, awake, and oriented x3. HEENT: Head is atraumatic and normocephalic. Eyes: Pupils are equal and reactive to light and accommodation. Oropharynx clear. Mucosa moist. Neck: Supple. No JVD. No bruits bilaterally. Cardiovascular: Regular rate and rhythm. No murmur. Respiratory: Clear to auscultation bilaterally. Abdomen: Soft, mildly tender in the left lower quadrant with no rebound, no guarding. Bowel sounds are present in all 4 quadrants. Extremities: There is no edema. + 2 pulses present bilaterally. No clubbing or cyanosis. Neuro Evaluation: Speech is clear, cranial nerves II through XII grossly intact. Motor strength is 5/5 bilaterally. Please note that this is a short summary of the patient's hospitalization. Please refer to further medical records for details. TIME SPENT: Approximately 35 minutes was spent on the patient's discharge. CC: Dr. Navarro; Dr. Maxwell* [id number]/CPS #: [id number] [facility]
== END 2016-12-19 15:35 | disposition home or self-care (01) | DRG 244 ==
LOC: ED 00:29 → SSU 06:17
PROVIDERS: ADMIT Hospitalist; ATTEND Internal Medicine
DX: K57.20 Diverticulitis of large intestine with perforation and abscess without bleeding (principal); G62.9 Polyneuropathy, unspecified; I10 Essential (primary) hypertension; E78.5 Hyperlipidemia, unspecified; K21.9 Gastro-esophageal reflux disease without esophagitis; F41.9 Anxiety disorder, unspecified; M10.9 Gout, unspecified; D35.02 Benign neoplasm of left adrenal gland; K44.9 Diaphragmatic hernia without obstruction or gangrene; K80.20 Calculus of gallbladder without cholecystitis without obstruction; M79.662 Pain in left lower leg; Z88.6 Allergy status to analgesic agent; Z79.899 Other long term (current) drug therapy
CPT/HCPCS: 36415; 72170; 80048; 80053; 81003; 81015; 83605; 83690; 84134; 84484; 85025; 85730; 86140; 87086; 99284; A9270-GY; J1170; J1644; J2270; J2405; J2543; J3480

== ENCOUNTER 2020-11-15 21:20 | Inpatient (IN) ==
[2020-11-16] MEDS: NS 0.9% 1000 ml BAG 1,000 ML IV SCH ×2 (03:00→14:16)
[2020-11-16] MEDS ORDERED: Buffered Lidocaine 1% SYRIN 1 ml INTRADERM ONE ×2 (07:13→09:45)
[2020-11-16] MEDS ORDERED: CMCS: Budesonide 3 mg CAP (NF) PO SCH (09:00)
[2020-11-16] MEDS: Cholecalciferol (VIT D3) 1,000 unit TAB PO SCH (09:38)
[2020-11-16 09:44] LABS: Activated Partial Thrombo Time 24.3 seconds (26.0-38.0); INR 1.71 (0.82-1.09)
[2020-11-16 10:13] LABS: TSH Ultra Thyroid Stim Horm 1.26 mcIU/mL (0.34-5.60)
[2020-11-16 10:31] LABS: Hematocrit 22 % (35-47); Hemoglobin 7.4 g/dL (12.0-16.0); Mean Corpuscular HGB Conc 33 g/dL (31-36); Mean Corpuscular Hemoglobin 33 pg (27-31); Mean Corpuscular Volume 101 fL (80-97); Mean Platelet Volume 7.9 fL (7.4-10.4); Platelet Count 203 10^3/uL (150-450); Red Blood Count 2.23 10^6 /uL (3.70-4.87); Red Cell Distribution Width 17 % (10-15); White Blood Count 13.3 10^3/uL (3.5-10.8)
[2020-11-16 11:30] LABS: ABS Basophils 0.1 10^3/ul (0-0.2); ABS Eosinophils 0.1 10^3/ul (0-0.6); ABS Lymphocytes 1.9 10^3/ul (1.0-4.8); ABS Monocytes 0.8 10^3/ul (0-0.8); ABS Neutrophils 10.4 10^3/ul (1.5-7.7); Eosinophil % 1.1 %; Lymphocyte % 13.9 %; Nucleated Red Blood Cells % 0.3
[2020-11-16 11:33] LABS: Polychromasia 1+
[2020-11-16 12:07] LABS: Albumin 2.7 g/dL (3.2-5.2); Albumin/Globulin Ratio 1.4 (1-3); C Reactive Protein 131.42 mg/L (<8.01); Calcium 9.2 mg/dL (8.6-10.3); EGFR African American 51.8 (>60); EGFR Non-African American 42.8 (>60); Globulin 1.9 g/dL (2-4); Magnesium 1.6 mg/dL (1.9-2.7); Potassium 4.5 mmol/L (3.5-5.0); Total Bilirubin 0.6 mg/dL (0.2-1.0); Total Protein 4.6 g/dL (6.4-8.9)
[2020-11-16] MEDS ORDERED: Calcium Carb (TUMS) 500 mg CHEW TAB PO PRN (14:27)
[2020-11-16 15:33] LABS: Urine Appearance Cloudy; Urine Bilirubin Negative (Negative); Urine Blood Negative (Negative); Urine Color Yellow; Urine Glucose Negative (Negative); Urine Ketones Negative (Negative); Urine Nitrite Negative (Negative); Urine Protein Negative (Negative); Urine Specific Gravity 1.044 (1.010-1.030); Urine Urobilinogen Negative (Negative)
[2020-11-16] MEDS ORDERED: Magnesium Sulfate 2 gm BAG 2 GM/50 ML BAG IVPB ONE (17:38)
[2020-11-16 22:08] LABS: Hematocrit 21 % (35-47); Hemoglobin 6.9 g/dL (12.0-16.0)
[2020-11-17] MEDS ORDERED: Buffered Lidocaine 1% SYRIN 1 ml INTRADERM ONE (06:00)
[2020-11-17] MEDS: Lactated Ringers 1000 ml BAG 1,000 ML IV SCH ×2 (07:09→17:45)
[2020-11-17 08:36] LABS: Folate 16.89 ng/mL (>3.99)
[2020-11-17 08:37] LABS: Vitamin B12 > 1450 pg/mL (180-914)
[2020-11-17 08:52] LABS: Hematocrit 22 % (35-47); Hemoglobin 7.5 g/dL (12.0-16.0); Mean Corpuscular HGB Conc 34 g/dL (31-36); Mean Corpuscular Hemoglobin 33 pg (27-31); Mean Corpuscular Volume 97 fL (80-97); Mean Platelet Volume 7.6 fL (7.4-10.4); Platelet Count 212 10^3/uL (150-450); Red Cell Distribution Width 19 % (10-15); White Blood Count 11.6 10^3/uL (3.5-10.8)
[2020-11-17] MEDS: Cholecalciferol (VIT D3) 1,000 unit TAB PO SCH (08:56)
[2020-11-17 09:02] LABS: BUN/Creatinine Ratio 44.3 (8-20); Calcium 9.3 mg/dL (8.6-10.3); EGFR African American 66.9 (>60); EGFR Non-African American 55.3 (>60); Potassium 3.7 mmol/L (3.5-5.0)
[2020-11-17] MEDS ORDERED: Propofol 10 mg/ml 100 ML BTL 100 ML ONE (11:12)
[2020-11-17] MEDS ORDERED: Lidocaine 1% w EPI 1:100,000 MDV 20 ML VIAL ONE (11:33)
[2020-11-17] MEDS ORDERED: Bupivacaine 0.5% SDV PF 30ML VIAL ONE (11:34)
[2020-11-17] MEDS ORDERED: Propofol 10 MG/ML 20 ML BTL ONE (12:02)
[2020-11-17] MEDS ORDERED: fentaNYL 100 mcg/2 ml 50 MCG/ML VIAL ONE ×2 (12:02→13:09)
[2020-11-17] MEDS ORDERED: Ketamine HCL 50 mg/ml 10 ml VIAL (500 MG) ONE (12:02)
[2020-11-17] MEDS ORDERED: Lidocaine 2% PF 5 ML VIAL ONE (12:02)
[2020-11-17] MEDS ORDERED: Midazolam 2 mg/2 ml VIAL 1 mg/ml 2 ml VIAL (2 mg) ONE (12:02)
[2020-11-17] MEDS ORDERED: Morphine 4 MG/ML VIAL (1 ml) IV PRN (13:06)
[2020-11-17] MEDS ORDERED: Naloxone 0.4 mg VIAL 0.4 mg/ml 1 ml VIAL IV PRN (13:06)
[2020-11-17] MEDS ORDERED: oxyCODONE/Acetamin 5/325 mg TAB PO PRN (13:06)
[2020-11-17] MEDS ORDERED: HYDROcodone/ACETAMIN 5/325 mg TAB PO PRN (13:06)
[2020-11-17] MEDS ORDERED: Ondansetron 4 mg VIAL 2 MG/ML 2 ml VIAL IV PRN ×2 (13:06→16:06)
[2020-11-17] MEDS: fentaNYL 100 mcg/2 ml 50 MCG/ML VIAL IV PRN ×2 (13:10→13:28)
[2020-11-17] MEDS ORDERED: oxyCODONE/Acetamin 5/325 mg TAB ONE (13:13)
[2020-11-17] MEDS ORDERED: Ondansetron 4 mg VIAL 2 MG/ML 2 ml VIAL ONE (16:11)
[2020-11-17 17:41] LABS: Hematocrit 22 % (35-47); Hemoglobin 7.5 g/dL (12.0-16.0)
[2020-11-17] MEDS: HYDROcodone/ACETAMIN 5/325 mg TAB PO PRN (21:27)
[2020-11-18] MEDS: Lactated Ringers 1000 ml BAG 1,000 ML IV SCH ×3 (01:16→21:44)
[2020-11-18] MEDS: HYDROcodone/ACETAMIN 5/325 mg TAB PO PRN ×2 (05:08→14:22)
[2020-11-18 05:30] LABS: Hematocrit 20 % (35-47); Hemoglobin 6.6 g/dL (12.0-16.0); Mean Corpuscular HGB Conc 34 g/dL (31-36); Mean Corpuscular Hemoglobin 33 pg (27-31); Mean Corpuscular Volume 98 fL (80-97); Mean Platelet Volume 7.2 fL (7.4-10.4); Platelet Count 216 10^3/uL (150-450); Red Blood Count 2.01 10^6 /uL (3.70-4.87); Red Cell Distribution Width 18 % (10-15); White Blood Count 9.3 10^3/uL (3.5-10.8)
[2020-11-18 05:46] LABS: EGFR African American 82.3 (>60); Magnesium 1.7 mg/dL (1.9-2.7); Potassium 3.5 mmol/L (3.5-5.0)
[2020-11-18] MEDS ORDERED: Magnesium Sulfate IV 1GM/100ML 1 GM/100 ML BAG IV ONE (08:22)
[2020-11-18] MEDS: Cholecalciferol (VIT D3) 1,000 unit TAB PO SCH (10:36)
[2020-11-18 18:22] LABS: Hematocrit 27 % (35-47); Hemoglobin 9.2 g/dL (12.0-16.0)
[2020-11-19 05:56] LABS: Hematocrit 23 % (35-47); Hemoglobin 7.8 g/dL (12.0-16.0); Mean Corpuscular HGB Conc 35 g/dL (31-36); Mean Corpuscular Hemoglobin 33 pg (27-31); Mean Corpuscular Volume 97 fL (80-97); Mean Platelet Volume 7.2 fL (7.4-10.4); Platelet Count 207 10^3/uL (150-450); Red Blood Count 2.35 10^6 /uL (3.70-4.87); Red Cell Distribution Width 18 % (10-15); White Blood Count 7.8 10^3/uL (3.5-10.8)
[2020-11-19 06:19] LABS: BUN/Creatinine Ratio 30.3 (8-20); Calcium 8.9 mg/dL (8.6-10.3); EGFR African American 88.6 (>60); EGFR Non-African American 73.2 (>60); Magnesium 1.6 mg/dL (1.9-2.7); Potassium 3.8 mmol/L (3.5-5.0)
[2020-11-19] MEDS: Lactated Ringers 1000 ml BAG 1,000 ML IV SCH (08:40)
[2020-11-19] MEDS: Cholecalciferol (VIT D3) 1,000 unit TAB PO SCH (08:41)
[2020-11-19] MEDS ORDERED: Magnesium Sulfate 2 gm BAG 2 GM/50 ML BAG IVPB ONE (08:49)
[2020-11-19] MEDS: Multivitamins/Minerals TAB PO SCH (09:51)
[2020-11-19 13:25] LABS: Hematocrit 26 % (35-47); Hemoglobin 8.5 g/dL (12.0-16.0)
[2020-11-19] MEDS: HYDROcodone/ACETAMIN 5/325 mg TAB PO PRN (15:50)
[2020-11-20 07:04] LABS: Hematocrit 25 % (35-47); Hemoglobin 8.4 g/dL (12.0-16.0); Mean Corpuscular HGB Conc 33 g/dL (31-36); Mean Corpuscular Hemoglobin 33 pg (27-31); Mean Corpuscular Volume 99 fL (80-97); Mean Platelet Volume 7.1 fL (7.4-10.4); Platelet Count 230 10^3/uL (150-450); Red Blood Count 2.56 10^6 /uL (3.70-4.87); Red Cell Distribution Width 17 % (10-15); White Blood Count 7.2 10^3/uL (3.5-10.8)
[2020-11-20 07:21] LABS: BUN/Creatinine Ratio 28.8 (8-20); Calcium 9.2 mg/dL (8.6-10.3); EGFR African American 104.3 (>60); EGFR Non-African American 86.2 (>60); Magnesium 1.9 mg/dL (1.9-2.7)
[2020-11-20] MEDS: Cholecalciferol (VIT D3) 1,000 unit TAB PO SCH (09:05)
[2020-11-20] MEDS: HYDROcodone/ACETAMIN 5/325 mg TAB PO PRN ×2 (09:05→21:24)
[2020-11-20] MEDS: Multivitamins/Minerals TAB PO SCH (09:05)
[2020-11-21 05:42] LABS: Hematocrit 25 % (35-47); Hemoglobin 8.4 g/dL (12.0-16.0); Mean Corpuscular HGB Conc 34 g/dL (31-36); Mean Corpuscular Hemoglobin 33 pg (27-31); Mean Corpuscular Volume 99 fL (80-97); Platelet Count 244 10^3/uL (150-450); Red Blood Count 2.54 10^6 /uL (3.70-4.87); Red Cell Distribution Width 19 % (10-15); White Blood Count 9.3 10^3/uL (3.5-10.8)
[2020-11-21 06:42] LABS: ABS Basophils 0.1 10^3/ul (0-0.2); ABS Eosinophils 0.3 10^3/ul (0-0.6); ABS Lymphocytes 1.5 10^3/ul (1.0-4.8); ABS Monocytes 0.7 10^3/ul (0-0.8); ABS Neutrophils 6.7 10^3/ul (1.5-7.7); Eosinophil % 2.9 %; Lymphocyte % 16.1 %; Nucleated Red Blood Cells % 0.1
[2020-11-21] MEDS: Cholecalciferol (VIT D3) 1,000 unit TAB PO SCH (07:51)
[2020-11-21] MEDS: Multivitamins/Minerals TAB PO SCH (07:51)
[2020-11-21] MEDS: HYDROcodone/ACETAMIN 5/325 mg TAB PO PRN ×2 (13:17→20:29)
[2020-11-21] MEDS ORDERED: Magnesium Hydroxide LIQ 30 ML UDC PO ONE (17:35)
[2020-11-22 07:03] LABS: Hematocrit 26 % (35-47); Hemoglobin 8.5 g/dL (12.0-16.0); Mean Corpuscular HGB Conc 33 g/dL (31-36); Mean Corpuscular Hemoglobin 33 pg (27-31); Mean Corpuscular Volume 100 fL (80-97); Mean Platelet Volume 7.2 fL (7.4-10.4); Platelet Count 267 10^3/uL (150-450); Red Cell Distribution Width 19 % (10-15); White Blood Count 7.8 10^3/uL (3.5-10.8)
[2020-11-22] MEDS: Cholecalciferol (VIT D3) 1,000 unit TAB PO SCH (08:23)
[2020-11-22] MEDS: Multivitamins/Minerals TAB PO SCH (08:24)
[2020-11-22] MEDS: HYDROcodone/ACETAMIN 5/325 mg TAB PO PRN (08:28)
[2020-11-23 05:42] LABS: Hematocrit 26 % (35-47); Hemoglobin 8.8 g/dL (12.0-16.0); Mean Corpuscular HGB Conc 33 g/dL (31-36); Mean Corpuscular Hemoglobin 33 pg (27-31); Mean Corpuscular Volume 99 fL (80-97); Platelet Count 288 10^3/uL (150-450); Red Blood Count 2.66 10^6 /uL (3.70-4.87); Red Cell Distribution Width 19 % (10-15); White Blood Count 7.9 10^3/uL (3.5-10.8)
[2020-11-23 06:06] LABS: BUN/Creatinine Ratio 30.5 (8-20); Calcium 9.3 mg/dL (8.6-10.3); EGFR African American 118.7 (>60); EGFR Non-African American 98.1 (>60); Potassium 4.3 mmol/L (3.5-5.0)
[2020-11-23] MEDS: Cholecalciferol (VIT D3) 1,000 unit TAB PO SCH (09:43)
[2020-11-23] MEDS: Multivitamins/Minerals TAB PO SCH (09:43)
[2020-11-23] MEDS: HYDROcodone/ACETAMIN 5/325 mg TAB PO PRN (21:06)
[2020-11-24 06:01] LABS: Hematocrit 28 % (35-47); Mean Corpuscular HGB Conc 32 g/dL (31-36); Mean Corpuscular Hemoglobin 32 pg (27-31); Mean Corpuscular Volume 101 fL (80-97); Mean Platelet Volume 7.2 fL (7.4-10.4); Platelet Count 308 10^3/uL (150-450); Red Cell Distribution Width 19 % (10-15); White Blood Count 7.6 10^3/uL (3.5-10.8)
[2020-11-24] MEDS: HYDROcodone/ACETAMIN 5/325 mg TAB PO PRN (11:03)
[2020-11-24] MEDS: Cholecalciferol (VIT D3) 1,000 unit TAB PO SCH ×2 (11:06→11:07)
[2020-11-24] MEDS: Multivitamins/Minerals TAB PO SCH (11:07)
[2020-11-24 15:27] VITALS: BP 100/60
== END 2020-11-24 11:40 | DRG 361 ==
LOC: ED 21:20 → MEDTELE 21:20 → MED 11-23 15:32
PROVIDERS: ADMIT Internal Medicine; ATTEND Internal Medicine

== ENCOUNTER 2020-11-24 08:36 | Inpatient (IN) ==
[2020-11-24] MEDS ORDERED: Senna TAB 8.6 mg TAB PO PRN (13:28)
[2020-11-24] MEDS ORDERED: Magnesium Hydroxide LIQ 30 ML UDC PO PRN (13:28)
[2020-11-25 06:38] LABS: Hematocrit 26 % (35-47); Hemoglobin 8.5 g/dL (12.0-16.0); Mean Corpuscular HGB Conc 33 g/dL (31-36); Mean Corpuscular Hemoglobin 33 pg (27-31); Mean Corpuscular Volume 100 fL (80-97); Mean Platelet Volume 6.9 fL (7.4-10.4); Platelet Count 335 10^3/uL (150-450); Red Blood Count 2.59 10^6 /uL (3.70-4.87); Red Cell Distribution Width 18 % (10-15); White Blood Count 7.5 10^3/uL (3.5-10.8)
[2020-11-25 06:56] LABS: Albumin 2.4 g/dL (3.2-5.2); Albumin/Globulin Ratio 1.1 (1-3); BUN/Creatinine Ratio 22.4 (8-20); Calcium 9.4 mg/dL (8.6-10.3); EGFR African American 77.9 (>60); EGFR Non-African American 64.4 (>60); Globulin 2.1 g/dL (2-4); Potassium 4.3 mmol/L (3.5-5.0); Total Bilirubin 0.5 mg/dL (0.2-1.0); Total Protein 4.5 g/dL (6.4-8.9)
[2020-11-25 07:19] LABS: ABS Basophils 0.1 10^3/ul (0-0.2); ABS Eosinophils 0.2 10^3/ul (0-0.6); ABS Lymphocytes 1.4 10^3/ul (1.0-4.8); ABS Monocytes 0.7 10^3/ul (0-0.8); ABS Neutrophils 5.1 10^3/ul (1.5-7.7); Eosinophil % 2.9 %; Lymphocyte % 18.8 %
[2020-11-25] MEDS: Cholecalciferol (VIT D3) 1,000 unit TAB PO SCH (10:12)
[2020-11-25] MEDS: Bacitracin OINTMENT TUBE TOPICAL SCH (11:00)
[2020-11-25 12:57] LABS: Hematocrit 27 % (35-47); Hemoglobin 8.7 g/dL (12.0-16.0); Mean Corpuscular HGB Conc 32 g/dL (31-36); Mean Corpuscular Hemoglobin 32 pg (27-31); Mean Corpuscular Volume 100 fL (80-97); Platelet Count 343 10^3/uL (150-450); Red Blood Count 2.71 10^6 /uL (3.70-4.87); Red Cell Distribution Width 18 % (10-15); White Blood Count 7.8 10^3/uL (3.5-10.8)
[2020-11-25 13:16] LABS: Albumin 2.5 g/dL (3.2-5.2); Albumin/Globulin Ratio 1.2 (1-3); BUN/Creatinine Ratio 22.4 (8-20); Calcium 9.5 mg/dL (8.6-10.3); EGFR African American 77.9 (>60); EGFR Non-African American 64.4 (>60); Globulin 2.1 g/dL (2-4); Potassium 4.2 mmol/L (3.5-5.0); Total Bilirubin 0.4 mg/dL (0.2-1.0); Total Protein 4.6 g/dL (6.4-8.9)
[2020-11-25 13:28] LABS: ABS Basophils 0.1 10^3/ul (0-0.2); ABS Eosinophils 0.2 10^3/ul (0-0.6); ABS Lymphocytes 1.2 10^3/ul (1.0-4.8); ABS Monocytes 0.8 10^3/ul (0-0.8); ABS Neutrophils 5.5 10^3/ul (1.5-7.7); Lymphocyte % 15.8 %
[2020-11-25] MEDS: HYDROcodone/ACETAMIN 5/325 mg TAB PO PRN (14:39)
[2020-11-26 06:46] LABS: Hematocrit 25 % (35-47); Hemoglobin 8.2 g/dL (12.0-16.0); Mean Corpuscular HGB Conc 33 g/dL (31-36); Mean Corpuscular Hemoglobin 32 pg (27-31); Mean Corpuscular Volume 99 fL (80-97); Mean Platelet Volume 7.2 fL (7.4-10.4); Platelet Count 357 10^3/uL (150-450); Red Blood Count 2.54 10^6 /uL (3.70-4.87); Red Cell Distribution Width 18 % (10-15); White Blood Count 8.4 10^3/uL (3.5-10.8)
[2020-11-26 07:58] LABS: ABS Basophils 0.1 10^3/ul (0-0.2); ABS Eosinophils 0.3 10^3/ul (0-0.6); ABS Lymphocytes 1.2 10^3/ul (1.0-4.8); ABS Monocytes 0.6 10^3/ul (0-0.8); ABS Neutrophils 6.3 10^3/ul (1.5-7.7); Lymphocyte % 14.6 %
[2020-11-26] MEDS: Cholecalciferol (VIT D3) 1,000 unit TAB PO SCH (09:59)
[2020-11-26] MEDS: HYDROcodone/ACETAMIN 5/325 mg TAB PO PRN (10:00)
[2020-11-27] MEDS: Cholecalciferol (VIT D3) 1,000 unit TAB PO SCH (07:51)
[2020-11-27] MEDS: Bacitracin OINTMENT TUBE TOPICAL SCH ×2 (07:53→11:10)
[2020-11-27] MEDS: HYDROcodone/ACETAMIN 5/325 mg TAB PO PRN (08:10)
[2020-11-27] MEDS: ceFAZolin 1 GM ADVAN 1 GM in NS 0.9% 50 ML 50 ML IVPB SCH ×2 (14:52→22:11)
[2020-11-27 15:06] LABS: Hematocrit 39 % (35-47); Hemoglobin 11.9 g/dL (12.0-16.0); Mean Corpuscular HGB Conc 30 g/dL (31-36); Mean Corpuscular Hemoglobin 33 pg (27-31); Mean Corpuscular Volume 107 fL (80-97); Mean Platelet Volume 7.1 fL (7.4-10.4); Platelet Count 359 10^3/uL (150-450); Red Blood Count 3.66 10^6 /uL (3.70-4.87); Red Cell Distribution Width 19 % (10-15); White Blood Count 9.8 10^3/uL (3.5-10.8)
[2020-11-27 15:49] LABS: ABS Basophils 0.1 10^3/ul (0-0.2); ABS Eosinophils 0.2 10^3/ul (0-0.6); ABS Lymphocytes 1.4 10^3/ul (1.0-4.8); ABS Monocytes 0.7 10^3/ul (0-0.8); ABS Neutrophils 7.4 10^3/ul (1.5-7.7); Eosinophil % 2.3 %; Lymphocyte % 14.4 %; Nucleated Red Blood Cells % 0.1
[2020-11-28] MEDS: ceFAZolin 1 GM ADVAN 1 GM in NS 0.9% 50 ML 50 ML IVPB SCH ×3 (06:03→21:51)
[2020-11-28] MEDS: HYDROcodone/ACETAMIN 5/325 mg TAB PO PRN (07:36)
[2020-11-28] MEDS: Cholecalciferol (VIT D3) 1,000 unit TAB PO SCH (07:37)
[2020-11-29] MEDS: HYDROcodone/ACETAMIN 5/325 mg TAB PO PRN ×2 (04:40→09:16)
[2020-11-29] MEDS: ceFAZolin 1 GM ADVAN 1 GM in NS 0.9% 50 ML 50 ML IVPB SCH ×3 (05:25→20:41)
[2020-11-29 07:53] LABS: Hematocrit 24 % (35-47); Hemoglobin 8.1 g/dL (12.0-16.0); Mean Corpuscular HGB Conc 34 g/dL (31-36); Mean Corpuscular Hemoglobin 33 pg (27-31); Mean Corpuscular Volume 98 fL (80-97); Mean Platelet Volume 6.9 fL (7.4-10.4); Platelet Count 378 10^3/uL (150-450); Red Blood Count 2.45 10^6 /uL (3.70-4.87); Red Cell Distribution Width 17 % (10-15); White Blood Count 8.8 10^3/uL (3.5-10.8)
[2020-11-29 08:37] LABS: ABS Eosinophils 0.2 10^3/ul (0-0.6); ABS Lymphocytes 1.2 10^3/ul (1.0-4.8); ABS Monocytes 0.5 10^3/ul (0-0.8); ABS Neutrophils 6.8 10^3/ul (1.5-7.7); Lymphocyte % 14.2 %
[2020-11-29 08:40] LABS: Polychromasia 1+
[2020-11-29] MEDS: Cholecalciferol (VIT D3) 1,000 unit TAB PO SCH (09:16)
[2020-11-29] MEDS: Bacitracin OINTMENT TUBE TOPICAL SCH (14:14)
[2020-11-30] MEDS: ceFAZolin 1 GM ADVAN 1 GM in NS 0.9% 50 ML 50 ML IVPB SCH ×2 (05:10→14:42)
[2020-11-30] MEDS: HYDROcodone/ACETAMIN 5/325 mg TAB PO PRN (07:59)
[2020-11-30] MEDS: Cholecalciferol (VIT D3) 1,000 unit TAB PO SCH (08:02)
[2020-11-30 08:49] LABS: Albumin 2.4 g/dL (3.2-5.2); BUN/Creatinine Ratio 22.4 (8-20); Calcium 9.2 mg/dL (8.6-10.3); EGFR African American 102.5 (>60); EGFR Non-African American 84.7 (>60); Globulin 2.4 g/dL (2-4); Potassium 3.9 mmol/L (3.5-5.0); Total Bilirubin 0.2 mg/dL (0.2-1.0); Total Protein 4.8 g/dL (6.4-8.9)
[2020-11-30 12:26] VITALS: BP 110/58
== END 2020-11-30 17:45 | disposition swing bed (61) | DRG 860 ==
LOC: MED 12:54
PROVIDERS: ADMIT Physical Medicine & Rehabilitation; ATTEND Physical Medicine & Rehabilitation

== ENCOUNTER 2023-01-17 18:43 | Inpatient (IN) ==
[2023-01-17] MEDS ORDERED: Piperacillin/Tazobac ADVAN 3.375 GM in NS 0.9% 100 ml BAG 100 ML IV ONE (19:22)
[2023-01-17] MEDS ORDERED: Lactated Ringers 1000 ml BAG 1,000 ML IV ONE (19:23)
[2023-01-17] MEDS ORDERED: Morphine 2 MG/ML SYRINGE IV PRN (19:23)
[2023-01-17] MEDS ORDERED: Ondansetron 4 mg VIAL 2 MG/ML 2 ml VIAL IV PRN (19:24)
[2023-01-17] MEDS ORDERED: Lactated Ringers 1000 ml BAG 1,000 ML IV SCH (20:00)
[2023-01-17] MEDS ORDERED: Zosyn per Pharmacy NOTE FOLLOW UP SCH (20:00)
[2023-01-17] MEDS ORDERED: Senna TAB 8.6 mg TAB PO PRN (21:04)
[2023-01-17] MEDS ORDERED: Polyethylene Glycol 3350 BTL 238 GM BTL PO ONE (21:06)
[2023-01-17 21:13] LABS: Albumin 3.4 g/dL (3.2-5.2); Anion Gap 10 mmol/L (2-11); CO2 Carbon Dioxide 18 mmol/L (22-32); Calcium 9.5 mg/dL (8.6-10.3); Chloride 109 mmol/L (101-111); Magnesium 1.7 mg/dL (1.9-2.7); Potassium 4.1 mmol/L (3.5-5.0); Sodium 137 mmol/L (135-145)
[2023-01-17] MEDS ORDERED: Magnesium Sulfate IV 3 GM in NS 0.9% 100 ml BAG 100 ML IVPB ONE (21:16)
[2023-01-17 21:20] LABS: ALT 14 U/L (7-52); AST 19 U/L (13-39); Albumin/Globulin Ratio 1.5 (1-3); Alkaline Phosphatase 85 U/L (35-149); Blood Urea Nitrogen 24 mg/dL (6-24); Globulin 2.2 g/dL (2-4); Glucose 106 mg/dL (70-100); Lipase < 10 U/L (11.0-82.0); Total Protein 5.6 g/dL (6.4-8.9); eGFR CKD-EPI 63.4 (>60)
[2023-01-17 21:58] LABS: C Reactive Protein 194.82 mg/L (<8.01)
[2023-01-17 22:16] LABS: Hematocrit 40 % (35-47); Hemoglobin 12.6 g/dL (12.0-16.0); Mean Corpuscular HGB Conc 31 g/dL (31-36); Mean Corpuscular Hemoglobin 31 pg (27-31); Mean Corpuscular Volume 99 fL (80-97); Red Blood Count 4.07 10^6 /uL (3.70-4.87); Red Cell Distribution Width 17 % (10-15); White Blood Count 18.5 10^3/uL (3.5-10.8)
[2023-01-17 22:36] LABS: ABS Basophils 0.1 10^3/ul (0-0.2); ABS Eosinophils 0.1 10^3/ul (0-0.6); ABS Lymphocytes 1.4 10^3/ul (1.0-4.8); ABS Monocytes 1.6 10^3/ul (0-0.8); ABS Neutrophils 15.3 10^3/ul (1.5-7.7); Eosinophil % 0.4 %; Lymphocyte % 7.7 %; Mean Platelet Volume 8.3 fL (7.4-10.4); Nucleated Red Blood Cells % 0.1; Platelet Count 203 10^3/uL (150-450)
[2023-01-17] MEDS: Enoxaparin 40 MG/0.4 ML SYR SUBCUT SCH (22:47)
[2023-01-17 23:16] LABS: Erythrocyte Sed Rate 14 mm/Hr (0-29)
[2023-01-18] MEDS: ZOSYN 3.375 GM Q8H per EXTENDED INFUSION IV SCH ×3 (02:05→17:26)
[2023-01-18 07:10] LABS: ABS Eosinophils 0.1 10^3/ul (0-0.6); ABS Lymphocytes 1.3 10^3/ul (1.0-4.8); ABS Monocytes 0.9 10^3/ul (0-0.8); Eosinophil % 0.7 %; Hematocrit 35 % (35-47); Hemoglobin 11.4 g/dL (12.0-16.0); Lymphocyte % 9.8 %; Mean Corpuscular HGB Conc 32 g/dL (31-36); Mean Corpuscular Hemoglobin 32 pg (27-31); Mean Corpuscular Volume 97 fL (80-97); Mean Platelet Volume 8.6 fL (7.4-10.4); Platelet Count 198 10^3/uL (150-450); Red Blood Count 3.62 10^6 /uL (3.70-4.87); Red Cell Distribution Width 17 % (10-15); White Blood Count 13.4 10^3/uL (3.5-10.8)
[2023-01-18 07:29] LABS: Creatinine, Serum 0.79 mg/dL (0.51-0.95); Magnesium 2.5 mg/dL (1.9-2.7); Potassium 3.7 mmol/L (3.5-5.0); eGFR CKD-EPI 74.2 (>60)
[2023-01-18] MEDS: HYDROcodone/ACETAMIN 5/325 mg TAB PO PRN (08:56)
[2023-01-18] MEDS: Polyethylene Glycol 3350 17 GM PACKET PO SCH ×2 (12:31→20:54)
[2023-01-18] MEDS: Enoxaparin 40 MG/0.4 ML SYR SUBCUT SCH (20:54)
[2023-01-19] MEDS: ZOSYN 3.375 GM Q8H per EXTENDED INFUSION IV SCH ×3 (00:55→17:03)
[2023-01-19 06:21] LABS: ABS Eosinophils 0.3 10^3/ul (0-0.6); ABS Lymphocytes 1.4 10^3/ul (1.0-4.8); ABS Monocytes 0.8 10^3/ul (0-0.8); ABS Neutrophils 8.2 10^3/ul (1.5-7.7); Eosinophil % 2.9 %; Hematocrit 33 % (35-47); Lymphocyte % 12.9 %; Mean Corpuscular HGB Conc 33 g/dL (31-36); Mean Corpuscular Hemoglobin 32 pg (27-31); Mean Corpuscular Volume 97 fL (80-97); Mean Platelet Volume 8.5 fL (7.4-10.4); Platelet Count 205 10^3/uL (150-450); Red Blood Count 3.44 10^6 /uL (3.70-4.87); Red Cell Distribution Width 17 % (10-15); White Blood Count 10.7 10^3/uL (3.5-10.8)
[2023-01-19 06:31] LABS: Calcium 8.7 mg/dL (8.6-10.3); Potassium 3.6 mmol/L (3.5-5.0)
[2023-01-19 06:37] LABS: Creatinine, Serum 0.81 mg/dL (0.51-0.95)
[2023-01-19] MEDS: Polyethylene Glycol 3350 17 GM PACKET PO SCH ×2 (08:17→19:48)
[2023-01-19] MEDS: HYDROcodone/ACETAMIN 5/325 mg TAB PO PRN (19:45)
[2023-01-20] MEDS: Enoxaparin 40 MG/0.4 ML SYR SUBCUT SCH ×2 (00:07→20:52)
[2023-01-20] MEDS: ZOSYN 3.375 GM Q8H per EXTENDED INFUSION IV SCH ×3 (00:08→17:10)
[2023-01-20 06:07] LABS: Hematocrit 33 % (35-47); Hemoglobin 10.6 g/dL (12.0-16.0); Mean Corpuscular HGB Conc 33 g/dL (31-36); Mean Corpuscular Hemoglobin 32 pg (27-31); Mean Corpuscular Volume 97 fL (80-97); Mean Platelet Volume 8.5 fL (7.4-10.4); Platelet Count 212 10^3/uL (150-450); Red Blood Count 3.37 10^6 /uL (3.70-4.87); Red Cell Distribution Width 17 % (10-15); White Blood Count 8.2 10^3/uL (3.5-10.8)
[2023-01-20 06:22] LABS: Calcium 8.7 mg/dL (8.6-10.3); Creatinine, Serum 0.67 mg/dL (0.51-0.95); Potassium 3.3 mmol/L (3.5-5.0); eGFR CKD-EPI 86.7 (>60)
[2023-01-20 07:42] LABS: ABS Basophils 0.1 10^3/ul (0-0.2); ABS Eosinophils 0.2 10^3/ul (0-0.6); ABS Lymphocytes 1.1 10^3/ul (1.0-4.8); ABS Monocytes 0.6 10^3/ul (0-0.8); ABS Neutrophils 6.2 10^3/ul (1.5-7.7); Eosinophil % 2.3 %; Lymphocyte % 13.2 %
[2023-01-20] MEDS ORDERED: Potassium Chlor 20 meq TAB.ER PO ONE (08:04)
[2023-01-20 08:44] LABS: Magnesium 1.8 mg/dL (1.9-2.7)
[2023-01-20] MEDS ORDERED: Magnesium Sulfate 2 gm BAG 2 GM/50 ML BAG IVPB ONE (10:27)
[2023-01-20] MEDS: Polyethylene Glycol 3350 17 GM PACKET PO SCH ×2 (11:06→20:43)
[2023-01-20] MEDS: HYDROcodone/ACETAMIN 5/325 mg TAB PO PRN (11:07)
[2023-01-20 15:16] LABS: Urine Appearance Cloudy; Urine Bilirubin Negative (Negative); Urine Blood Negative (Negative); Urine Color Yellow; Urine Glucose Negative (Negative); Urine Ketones Negative (Negative); Urine Nitrite Negative (Negative); Urine Protein Negative (Negative); Urine Specific Gravity 1.018 (1.002-1.030); Urine Urobilinogen Negative (Negative)
[2023-01-20 15:21] LABS: Urine Bacteria Absent (Absent); Urine Red Blood Cell Absent (Absent); Urine Squamous Epithelial Cell Present (Absent); Urine White Blood Cell 2+(11-20/hpf) (Absent)
[2023-01-21] MEDS: ZOSYN 3.375 GM Q8H per EXTENDED INFUSION IV SCH ×2 (01:26→09:20)
[2023-01-21 06:23] LABS: Hematocrit 36 % (35-47); Hemoglobin 11.4 g/dL (12.0-16.0); Mean Corpuscular HGB Conc 32 g/dL (31-36); Mean Corpuscular Hemoglobin 31 pg (27-31); Mean Corpuscular Volume 97 fL (80-97); Mean Platelet Volume 8.2 fL (7.4-10.4); Platelet Count 242 10^3/uL (150-450); Red Cell Distribution Width 17 % (10-15); White Blood Count 5.7 10^3/uL (3.5-10.8)
[2023-01-21 06:38] LABS: Creatinine, Serum 0.62 mg/dL (0.51-0.95); Potassium 3.8 mmol/L (3.5-5.0); eGFR CKD-EPI 88.3 (>60)
[2023-01-21 06:43] LABS: ABS Eosinophils 0.2 10^3/ul (0-0.6); ABS Lymphocytes 1.3 10^3/ul (1.0-4.8); ABS Monocytes 0.4 10^3/ul (0-0.8); ABS Neutrophils 3.7 10^3/ul (1.5-7.7); Eosinophil % 3.5 %
[2023-01-21] MEDS: Polyethylene Glycol 3350 17 GM PACKET PO SCH (09:23)
[2023-01-21 14:38] VITALS: BP 139/75
== END 2023-01-21 15:40 | disposition home or self-care (01) | DRG 392 ==
LOC: INTOOBSV 18:43 → MEDTELE 18:43 → SUATTDRO 18:43
PROVIDERS: ADMIT Internal Medicine; ATTEND Internal Medicine

== ENCOUNTER 2023-11-01 08:10 | Inpatient (IN) ==
[~2023-11-01 08:10] MED LIST: Buffered Lidocaine 1% SYRIN 1 ml INTRADERM ONE; Lactated Ringers 1000 ml BAG 1,000 ML IV SCH; Lidocaine 2% PF 5 ML VIAL ONE; Midazolam 2 mg/2 ml VIAL 1 mg/ml 2 ml VIAL (2 mg) ONE; Propofol 10 MG/ML 20 ML BTL ONE; fentaNYL 100 mcg/2 ml 50 MCG/ML VIAL ONE
[2023-11-01] MEDS ORDERED: cefTRIAXone 1 gm/50 mL D5W 1 GM/50 ML BAG IV ONE (08:57)
[2023-11-01] MEDS ORDERED: Iohexol 350 (CONTRAST) 100 ML PAK IV ONE (09:00)
[2023-11-01] MEDS ORDERED: Propofol 10 MG/ML 20 ML BTL ONE (11:21)
[2023-11-01] MEDS ORDERED: Ondansetron 4 mg VIAL 2 MG/ML 2 ml VIAL ONE (13:13)
[2023-11-01 18:28] LABS: Albumin 3.5 g/dL (3.2-5.2); Albumin/Globulin Ratio 1.4 (1-3); Calcium 9.8 mg/dL (8.6-10.3); Creatinine, Serum 0.58 mg/dL (0.51-0.95); Globulin 2.5 g/dL (2-4); Potassium 3.2 mmol/L (3.5-5.0); Total Bilirubin 0.6 mg/dL (0.2-1.0); eGFR CKD-EPI 89.7 (>60)
[2023-11-01 18:58] LABS: ABS Lymphocytes 0.8 10^3/uL (1.0-4.8); ABS Monocytes 0.5 10^3/uL (0.0-0.9); ABS Neutrophils 19.8 10^3/uL (1.5-7.6); ABS Nucleated RBC 0.01 10^3/ul; Eosinophil % 0.1 %; Hematocrit 39.1 % (35-45); Hemoglobin 12.5 g/dL (11.5-14.3); Lymphocyte % 3.6 %; Mean Corpuscular Hemoglobin 29.9 pg (27-33); Mean Corpuscular Volume 93.4 fL (80-97); Mean Platelet Volume 7.4 fL (7.5-11.2); Nucleated Red Blood Cells % 0.1 %/100WBC (0.0-0.8); Platelet Count 283 10^3/uL (150-450); Red Blood Count 4.19 10^6/uL (3.63-4.92); Red Cell Distribution Width 16.2 % (12-17)
[2023-11-01] MEDS: KCL 20 MEQ/100 ML IVPREMIX 20 MEQ/100 ML BAG IV SCH ×2 (19:47→23:28)
[2023-11-01] MEDS ORDERED: Iohexol 350 (CONTRAST) 500 ML MDV IV ONE (22:31)
[2023-11-02] MEDS ORDERED: KCL 20 MEQ/100 ML IVPREMIX 20 MEQ/100 ML BAG IV SCH
[2023-11-02 08:42] LABS: ABS Eosinophils 0.1 10^3/uL (0.0-0.5); ABS Lymphocytes 1.4 10^3/uL (1.0-4.8); ABS Monocytes 0.5 10^3/uL (0.0-0.9); ABS Neutrophils 15.7 10^3/uL (1.5-7.6); ABS Nucleated RBC 0.01 10^3/ul; Eosinophil % 0.4 %; Hematocrit 39.1 % (35-45); Hemoglobin 12.4 g/dL (11.5-14.3); Lymphocyte % 7.7 %; Mean Corpuscular Hgb Conc 31.7 g/dL (31-36); Mean Corpuscular Volume 94.8 fL (80-97); Mean Platelet Volume 7.4 fL (7.5-11.2); Nucleated Red Blood Cells % 0.1 %/100WBC (0.0-0.8); Platelet Count 246 10^3/uL (150-450); Red Blood Count 4.13 10^6/uL (3.63-4.92); Red Cell Distribution Width 16.9 % (12-17); White Blood Count 17.6 10^3/uL (3.8-11.8)
[2023-11-02] MEDS ORDERED: Influenza vaccine *QUAD* *2023-24* 0.5 ML SYRINGE IM ONE (09:00)
[2023-11-02] MEDS ORDERED: Furosemide 40 mg/4 ml IV VIAL IV SLOW PU ONE (09:23)
[2023-11-02] MEDS ORDERED: Potassium Chlor 20 meq TAB.ER PO ONE (09:24)
[2023-11-02 09:34] LABS: Calcium 9.6 mg/dL (8.6-10.3); Creatinine, Serum 0.71 mg/dL (0.51-0.95); Magnesium 1.7 mg/dL (1.9-2.7); Potassium 4.2 mmol/L (3.5-5.0); eGFR CKD-EPI 84.3 (>60)
[2023-11-02] MEDS: CMCS:Budesonide 3 mg CAP (NF) PO SCH (10:16)
[2023-11-02] MEDS: CMCS:Mirabegron 25 mg ER TAB (NF) PO SCH (10:17)
[2023-11-02 14:39] LABS: C Reactive Protein 167.49 mg/L (<8.01)
[2023-11-02] MEDS: cefTRIAXone 1 gm/50 mL D5W 1 GM/50 ML BAG IV SCH (15:52)
[2023-11-02] MEDS: DOXYcycline 100 MG in NS 0.9% 250 ml 250 ML IVPB SCH (17:15)
[2023-11-03] MEDS: DOXYcycline 100 MG in NS 0.9% 250 ml 250 ML IVPB SCH ×2 (04:37→16:43)
[2023-11-03 07:15] LABS: ABS Basophils 0.1 10^3/uL (0.0-0.1); ABS Eosinophils 0.2 10^3/uL (0.0-0.5); ABS Lymphocytes 1.4 10^3/uL (1.0-4.8); ABS Monocytes 0.6 10^3/uL (0.0-0.9); ABS Neutrophils 9.7 10^3/uL (1.5-7.6); ABS Nucleated RBC 0.01 10^3/ul; Eosinophil % 1.5 %; Hematocrit 32.5 % (35-45); Hemoglobin 10.7 g/dL (11.5-14.3); Lymphocyte % 11.6 %; Mean Corpuscular Hemoglobin 30.7 pg (27-33); Mean Corpuscular Volume 93.1 fL (80-97); Mean Platelet Volume 7.7 fL (7.5-11.2); Nucleated Red Blood Cells % 0.1 %/100WBC (0.0-0.8); Platelet Count 248 10^3/uL (150-450); Red Blood Count 3.49 10^6/uL (3.63-4.92); Red Cell Distribution Width 16.1 % (12-17)
[2023-11-03] MEDS: CMCS:Mirabegron 25 mg ER TAB (NF) PO SCH (08:57)
[2023-11-03] MEDS: CMCS:Budesonide 3 mg CAP (NF) PO SCH (08:57)
[2023-11-03 09:32] LABS: Calcium 10.1 mg/dL (8.6-10.3); Creatinine, Serum 0.76 mg/dL (0.51-0.95); Magnesium 1.9 mg/dL (1.9-2.7); Potassium 4.1 mmol/L (3.5-5.0); eGFR CKD-EPI 77.7 (>60)
[2023-11-03] MEDS: cefTRIAXone 1 gm/50 mL D5W 1 GM/50 ML BAG IV SCH (14:59)
[2023-11-04] MEDS: DOXYcycline 100 MG in NS 0.9% 250 ml 250 ML IVPB SCH (03:41)
[2023-11-04 06:36] LABS: Hematocrit 33.5 % (35-45); Hemoglobin 10.9 g/dL (11.5-14.3); Mean Corpuscular Hemoglobin 30.3 pg (27-33); Mean Corpuscular Hgb Conc 32.5 g/dL (31-36); Mean Corpuscular Volume 93.4 fL (80-97); Platelet Count 243 10^3/uL (150-450); Red Blood Count 3.59 10^6/uL (3.63-4.92); Red Cell Distribution Width 16.3 % (12-17); White Blood Count 11.5 10^3/uL (3.8-11.8)
[2023-11-04 06:59] LABS: Anion Gap 5 mmol/L (2-16); Blood Urea Nitrogen 21 mg/dL (6-24); CO2 Carbon Dioxide 26 mmol/L (22-32); Calcium 9.9 mg/dL (8.6-10.3); Chloride 107 mmol/L (101-111); Creatinine, Serum 0.76 mg/dL (0.51-0.95); Glucose 100 mg/dL (70-100); Magnesium 1.7 mg/dL (1.9-2.7); Sodium 138 mmol/L (135-145); eGFR CKD-EPI 77.7 (>60)
[2023-11-04] MEDS ORDERED: Magnesium Sulfate 2 gm BAG 2 GM/50 ML BAG IVPB ONE (07:18)
[2023-11-04] MEDS: CMCS:Budesonide 3 mg CAP (NF) PO SCH (08:14)
[2023-11-04] MEDS: CMCS:Mirabegron 25 mg ER TAB (NF) PO SCH (08:15)
[2023-11-04 14:01] VITALS: BP 141/77
== END 2023-11-04 14:37 | disposition home or self-care (01) | DRG 987 ==
LOC: SSU 08:10 → OR 08:10
PROVIDERS: ADMIT Student in an Organized Health Care Education/Training Program; ATTEND Urology